=== PATIENT | female | born 1995 | race Caucasian/White ===

== ENCOUNTER 2022-01-31 13:52 | Emergency (ER) | payer BC, SELFPAY ==
--- NOTE | 2022-01-31 14:01 | ED.FEMALEGU ---
HPI - Female Genitourinary General Chief complaint: Urogenital-Female Stated complaint: uti symptoms Time Seen by Provider: 01/31/22 14:02 Source: patient, RN notes reviewed and old records reviewed Mode of arrival: ambulatory Limitations: no limitations History of Present Illness HPI Narrative: 26-year-old female who presents to [facility] with complaints of urinary frequency and irritation to vaginal are for the past 1-2 weeks. Patient reports that she did do a test 1.5 weeks ago which was negative concerned since its been almost 2 month since her last period. Patient reports that she is always irregular but usually runs 5-6 weeks. Patient denies any concern for exposure to STD's Related Data Allergies Allergy/AdvReac Type Severity Reaction Status Date / Time No Known Allergies Allergy Verified 11/08/19 08:29 Review of Systems Review of Systems: CONSTITUTIONAL: Denies fever, chills, or sweats. EYES: Denies visual changes, redness, or discharge. ENT: Denies rhinorrhea, congestion, sore throat, or otalgia. CARDIOVASCULAR: Denies chest pain, palpitations, or edema. RESPIRATORY: Denies cough or dyspnea. GASTROINTESTINAL: Denies abdominal pain, nausea, vomiting, or diarrhea. GENITOURINARY: Positive dysuria no hematuria.some vaginal irritation SKIN: Denies rash or itching. MUSCULOSKELETAL: Denies back pain, joint pain, or myalgia. NEUROLOGIC: Denies headache, numbness, or weakness. PSYCHIATRIC: Denies anxiety or depression. PMFSH Past Medical History Medical History (Updated 01/31/22 @ 15:34 by Ailin Quintana NP) Asthma Pulmonary nodules UTI (urinary tract infection) Social History Social History (Updated 01/31/22 @ 15:35 by Ailin Quintana NP) Smoking status: Former smoker Smoking end date: 08/23/14 Alcohol intake: current Alcohol use details: social Substance use: never Living arrangements: with family Gender identity (if verbalized by the patient): Female Comments At time of signature, agree with nursing past medical, surgical, social and family history. There is no relevant family history pertinent to the presenting complaint Exam Narrative: GENERAL: Well-appearing, well-nourished, and in no acute distress. HEAD: Normocephalic, atraumatic. EYES: PERRLA and EOMI. ENT: Nares clear, no rhinorrhea or epistaxis. Mucous membranes moist.TM's normal with good light reflex, throat pink with no lesions or exudates no tonsil swelling NECK: Supple.no lymphadenopathy CHEST: Clear to auscultation. No respiratory distress.SAO2 100% on room air HEART: Regular rate and rhythm. No murmur heard. Normal peripheral pulses. ABDOMEN: Soft, nontender, nondistended, normal active bowel sounds.No CVA tenderness on exam. EXTREMITIES: Normal range of motion. No edema. SKIN: Warm, dry, no rash. NEURO: No focal deficits. Alert and oriented x3. Course Course Level of Care: Express Care Visit Vital Signs Vital signs: Vital Signs Temperature 36.4 C 01/31/22 14:02 Pulse Rate 100 01/31/22 14:02 Respiratory Rate 16 01/31/22 14:02 Blood Pressure 144/94 H 01/31/22 14:02 Pulse Oximetry 100 01/31/22 14:02 Temperature 36.4 C 01/31/22 14:02 Pulse Rate 100 01/31/22 14:02 Respiratory Rate 16 01/31/22 14:02 Blood Pressure 144/94 H 01/31/22 14:02 Pulse Oximetry 100 01/31/22 14:02 MDM - Female Genitourinary Medical Records Attestation: I reviewed the patient's medical records. Lab Data Lab results narrative: Urine dip glucose negative, bilirubin negative, ketone negative, specific gravity 1.025, blood negative pH 7.5 protein [id number] bilirubin 0.2 nitrate negative leukocyte negative Urine negative Labs: UCG Bedside Result Negative Reference Range: Negative Urine Glucose Negative Reference Range: Negative Urine Bilirubin
[2022-01-31 14:02] VITALS: BP 144/94; PULSE 100; RESP 16; TEMP 36.4; O2SAT 100
== END 2022-01-31 14:27 | disposition home or self-care (01) ==
PROVIDERS: Emergency Provider Registered Nurse
DX: R30.0 Dysuria (principal); Z87.891 Personal history of nicotine dependence; J45.909 Unspecified asthma, uncomplicated
CPT/HCPCS: 81003; 81025; 99212; G0463

== ENCOUNTER 2023-07-03 10:20 | Emergency (ER) | payer BC, SELFPAY ==
[2023-07-03 10:52] VITALS: BP 125/94; PULSE 90; RESP 16; TEMP 36.6; O2SAT 99
--- NOTE | 2023-07-03 11:25 | ED.URI ---
HPI - URI/Sore Throat General Chief Complaint: Upper Respiratory Infection Stated Complaint: Sore Throat Time Seen by Provider: 07/03/23 11:25 Source: patient, RN notes reviewed and old records reviewed Mode of arrival: ambulatory Limitations: no limitations History of Present Illness HPI Narrative: 27-year-old female who presents to [facility] Care with complaints of 4 day duration of throat pain and feeling like throat is swollen. Patient reports that it is hard to swallow and her throat feels swollen, appetite is decreased. Patient reports that she has been taking NyQuil and DayQuil for her symptoms. Patient denies any known fevers, reports that she has some nasal congestion and post nasal drainage. MD elicited complaint: sore throat, rhinorrhea and nasal congestion Onset (ago): day(s) (4) Severity: moderate Pain scale (0-10): 4 Able to tolerate fluids by mouth: Yes Treatments prior to arrival: other (NyQuil, DayQuil) Related Data Allergies Allergy/AdvReac Type Severity Reaction Status Date / Time No Known Allergies Allergy Verified 07/20/22 15:36 Review of Systems Review of Systems: CONSTITUTIONAL: Denies malaise, chills, sweats, or fever. EYES: Denies visual changes, redness, or discharge. ENT: Reports rhinorrhea, congestion, no sinus pain, no otalgia and positive sore throat. CARDIOVASCULAR: Denies chest pain, palpitations, or edema. RESPIRATORY: Reports no cough.? Denies dyspnea. GASTROINTESTINAL: Denies abdominal pain, nausea, vomiting, diarrhea SKIN: Denies rash or itching. MUSCULOSKELETAL: Denies myalgia. NEUROLOGIC: Denies headache. All systems reviewed & are unremarkable except as noted in HPI and below PMFSH Past Medical History Medical History Asthma Pulmonary nodules UTI (urinary tract infection) Surgical History Surgical History (Updated 07/04/23 @ 18:45 by Ailin Quintana NP) S/P wisdom tooth extraction Family History Family History Other Breast cancer Social History Social History Smoking status: Former smoker Smoking end date: 08/23/14 Alcohol intake: current Alcohol use details: social Substance use: never Living arrangements: with family Occupation/Education: occupation Gender identity (if verbalized by the patient): Female Sexual Orientation (if Verbalized by the Patient): Straight or Heterosexual Comments At time of signature, agree with nursing past medical, surgical, social and family history. There is no relevant family history pertinent to the presenting complaint Exam Narrative: GENERAL: Well-appearing, well-nourished, and in no acute distress. HEAD: Normocephalic EYES: PERRLA, conjunctivae clear ENT: Nares clear, turbinates edematous and erythematous, clear discharge. Mucous membranes moist. TM pearly franco with dull light reflex bilaterally; no tragal tenderness. Oropharynx erythematous without lesions. Tonsils red enlarged and without exudate, no drooling, no hoarseness, no trismus, uvula midline. NECK: Supple. lymphadenopathy CHEST: Clear to auscultation, breath sounds equal. No wheezing, rhonchi, rales, or stridor. No respiratory distress, speaks in full sentences.SAO2 99% on room air HEART: Regular rate and rhythm. No murmur heard. SKIN: Warm, dry, no rash. NEURO: Alert and oriented x3. PSYCH: Normal mood and affect Course Course Emergency Course: Patient is aware of diagnosis, understands and agrees to treatment plan.? Anticipatory guidance given.? Patient agrees to follow-up as directed and is aware of reasons to seek care at the emergency department. Portions of this record may have been created with voice recognition software Level of Care: Express Care Visit Vital Signs Vital signs: Vital Signs Temperature 36.6 C 07/03/23 10:52
== END 2023-07-03 11:39 | disposition home or self-care (01) ==
PROVIDERS: Emergency Provider Registered Nurse
DX: J03.90 Acute tonsillitis, unspecified (principal); J45.909 Unspecified asthma, uncomplicated; Z87.891 Personal history of nicotine dependence
CPT/HCPCS: 87081; 87880; 99213; G0463

== ENCOUNTER 2023-07-18 08:18 | Emergency (ER) | payer BC, SELFPAY ==
[2023-07-18 08:27] VITALS: BP 120/96; PULSE 97; RESP 16; TEMP 36.9; O2SAT 97
--- NOTE | 2023-07-18 08:31 | ED.URI ---
HPI - URI/Sore Throat General Chief Complaint: Upper Respiratory Infection Stated Complaint: Swollen tonsils;Trouble breathing Time Seen by Provider: 07/18/23 08:35 Source: patient, RN notes reviewed and old records reviewed Mode of arrival: ambulatory Limitations: no limitations History of Present Illness HPI Narrative: 27-year-old female presents to the [facility] with concerns for swollen tonsils. Was treated 2 weeks ago with dexamethasone as well as amoxicillin. States that she never completely recovered from the sore throat from 2 weeks ago. Reports feeling feverish but did not take her temperature. States the only thing she has taken was the steroid and the antibiotic. No other treatment prior to arrival Onset (ago): week(s) (2-3) Related Data Allergies Allergy/AdvReac Type Severity Reaction Status Date / Time No Known Allergies Allergy Verified 07/18/23 08:29 Review of Systems Review of Systems: All systems reviewed & are unremarkable except as noted in HPI and below Constitutional: Constitutional: Reports no additional constitutional complaints Eyes: Eyes: Reports no additional eye complaints ENT: Reports as per HPI and Reports sore throat Cardiovascular: Cardiovascular: Reports no additional cardiovascular complaints, Denies chest pain and Denies dyspnea Respiratory: Respiratory: Reports no additional respiratory complaints, Denies chest congestion, Denies cough and Denies dyspnea Gastrointestinal: Gastrointestinal: Reports no additional gastrointestinal complaints, Denies abdominal pain, Denies nausea and Denies vomiting Musculoskeletal: Musculoskeletal: Reports no additional musculoskeletal complaints Integumentary/Breasts: Skin/Breast: Reports system reviewed and no additional complaints, except as docu Neurologic: Reports system reviewed and no additional complaints, except as documented Psychiatric: Psychiatric: Reports no additional psychiatric complaints Allergic/Immunologic: Allergic/Immunologic: Reports no additional allergic/immunologic complaints [facility] Past Medical History Medical History Asthma Pulmonary nodules UTI (urinary tract infection) Surgical History Surgical History S/P wisdom tooth extraction Family History Family History Other Breast cancer Social History Social History Smoking status: Former smoker Smoking end date: 08/23/14 Alcohol intake: current Alcohol use details: social Substance use: never Living arrangements: with family Occupation/Education: occupation Gender identity (if verbalized by the patient): Female Sexual Orientation (if Verbalized by the Patient): Straight or Heterosexual Comments At the time of my signature, I reviewed and agree with the nursing past medical, surgical, social, and family history. There is no relevant family history pertinent to the patient complaint. Exam Const: General: cooperative, healthy appearing, comfortable, no acute distress, well developed, alert and well nourished Nutritional Appearance: well nourished and obese Orientation/consciousness: patient oriented x3 Limitations: no limitations HENMT: Head: normal to inspection Ears: hearing grossly normal bilaterally, external ears normal and TM abnormal wth effusion serous Face/Nose/Sinus: Normal external nose present, Normal nares present, Normal nasal mucous membranes and turbinates present, normal facial exam and face symmetric Face and sinus: normal facial exam and face symmetric Mouth: Yes Normal oral and palatal mucosa present, Yes lip normal and Yes moist mucous membranes Throat: posterior oropharynx normal, uvula midline, abnormal tonsil bilateral hypertrophy 2+ (Chronic versus acute); no erythema and no exudates and postnasal drainage
== END 2023-07-18 08:51 | disposition home or self-care (01) ==
PROVIDERS: Emergency Provider Nurse Practitioner
DX: R09.82 Postnasal drip (principal); J02.9 Acute pharyngitis, unspecified; H65.03 Acute serous otitis media, bilateral; J45.909 Unspecified asthma, uncomplicated; Z87.891 Personal history of nicotine dependence
CPT/HCPCS: 87081; 87880; 99213; G0463

== ENCOUNTER 2025-01-11 09:36 | Outpatient (CLI) | payer BC, SELFPAY ==
--- NOTE | ~2025-01-11 | CT_ITS ---
Clinical Indication: Pulmonary nodule CT Scan of the Chest with Contrast: Technique: Contiguous sections were acquired throughout the chest after intravenous administration of 75 cc of Omnipaque 350. Dose reduction technique was used on this scan by utilizing automated exposu re control and iterative reconstruction technique. The dose-length product (DLP) was 475.91 mGy-cm. Findings: There is no evidence of any significant mediastinal, hilar or axillary lymphadenopathy. There is no f illing defect in the pulmonary arterial tree to suggest pulmonary embolus. There is no evidence of ao rtic dissection or aneurysm. There is no evidence of pleural or pericardial effusion. There are several scattered subcentimeter pulmonary nodules in the right upper lobe and right middle lobe, largest in the right middle lobe measuring 5 mm (axial image 61). Images through the upper abdomen reveal diffuse hepatic steatosis. Impression: Subcentimeter pulmonary nodules, predominantly in the right upper and middle lobes, as above. Accordi ng to Fleischner Society criteria, for a low-risk patient, no further follow-up required. For a high- risk patient, recommend 12 month follow-up CT. Diffuse hepatic steatosis. Reviewed, dictated and finalized at location . Impression: Subcentimeter pulmonary nodules, predominantly in the right upper and middle lo bes, as above. According to Fleischner Society criteria, for a low-risk patient , no further follow-up required. For a high-risk patient, recommend 12 month fo llow-up CT. Diffuse hepatic steatosis.
== END 2025-01-11 09:37 | disposition home or self-care (01) ==
PROVIDERS: PCP Family Medicine; Visit Provider Family Medicine
DX: R91.8 Other nonspecific abnormal finding of lung field (principal); K76.0 Fatty (change of) liver, not elsewhere classified
CPT/HCPCS: 71260; Q9967